=== PATIENT | female | born 1985 | race Native Hawaiian/Other Pacific Islander ===

== ENCOUNTER 2017-03-06 23:48 | Emergency (ER) | payer MEDICAID ==
[2017-03-06 23:49] VITALS: BMI 40.8
[2017-03-06 23:55] VITALS: RESP 18
[2017-03-07] MEDS ORDERED: Sodium Chloride 0.9% 1,000 ML IV STA (00:29)
[2017-03-07 00:53] LABS: BASO # 0.1 K/uL (0.0-0.2); BASO % 0.6 % (0.0-2.0); EOS % 0.1 % (0.0-4.0); LYMPH # 1.2 K/uL (1.0-4.3); LYMPH % 7.8 % (20.0-40.0); MEAN CORPUSCULAR HEMOGLOBIN 25.8 pg (27.0-31.0); MEAN CORPUSCULAR HGB CONC 32.2 g/dL (33.0-37.0); MEAN PLATELET VOLUME 7.8 fl (7.2-11.7); MONO # 1.2 K/uL (0.0-0.8); MONO % 7.3 % (0.0-10.0); NEUT # 13.6 K/uL (1.8-7.0); NEUT % 84.2 % (50.0-75.0); PLATELET COUNT 278 K/uL (130-400); RBC 4.92 Mil/uL (3.80-5.20); RED CELL DISTRIBUTION WIDTH 14.4 % (11.5-14.5); WHITE BLOOD COUNT 16.1 K/uL (4.8-10.8)
[2017-03-07 01:01] LABS: HEMOGLOBIN 12.7 g/dL (12.0-16.0); MEAN CELL VOLUME 80.1 fl (81.0-99.0)
[2017-03-07 01:03] LABS: BLOOD UREA NITROGEN 6 mg/dl (7-17); CALCIUM 9.1 mg/dL (8.4-10.2); GFR AFRICAN-AMERICAN > 60; GFR NON-AFRICAN AMERICAN > 60
--- NOTE | 2017-03-07 01:24 | ED PDOC ---
HPI: CCC, URI, Sore Throat Time Seen by Provider: 03/06/17 23:56 Chief Complaint (Nursing): Flu-like Symptoms Chief Complaint (Provider): Flu-like Symptoms History Per: Patient History/Exam Limitations: no limitations Onset/Duration Of Symptoms: Days (x2-3 days) Current Symptoms Are (Timing): Still Present Sick Contacts (Context): Family Member(s) (children) Additional Complaint(s): Jennifer Quinonez is a 31 year old female who presents to the emergency department with complaints of body aches associated with fever and chills ongoing for 2-3 days. Denies any throat pain, dsypnea, cough, nausea, vomiting, diarrhea, abdominal pain or urinary symptoms. Of note, patient states that her kids recently had a strep throat infection. PMD: Lang Briggs MD Past Medical History Reviewed: Historical Data, Nursing Documentation, Vital Signs Vital Signs: Last Vital Signs Temp 98.2 F 03/07/17 03:32 Pulse 88 03/07/17 03:32 Resp 18 03/07/17 03:32 BP 132/74 03/07/17 03:32 Pulse Ox 97 03/07/17 03:46 - Medical History PMH: HTN - Surgical History Surgical History: (x 4) - Family History Family History: States: Unknown Family Hx - Social History Ex-Smoker (has not smoked in the last 12 months): Yes Alcohol: None Drugs: Denies - Home Medications Home Medications: Ambulatory Orders Medication Instructions Recorded Labetalol [Trandate] 100 mg PO BID 06/17/16 Multivit/Folic Acid/I 1 tab PO DAILY 06/17/16 [] Ferrous Sulfate 325 mg PO QD7 #60 tablet 06/20/16 Ibuprofen [Motrin Tab] 600 mg PO Q6 PRN #30 tab 06/20/16 oxyCODONE/Acetaminophen [Percocet 1 tab PO Q6 PRN #20 tab 06/20/16 5/325 mg Tab] Oseltamivir Phosphate [Tamiflu] 75 mg PO BID #9 capsule 10/17/16 Ibuprofen [Motrin Tab] 600 mg PO Q6 #30 tab 03/07/17 - Allergies Allergies/Adverse Reactions: Allergies Allergy/AdvReac Type Severity Reaction Status Date / Time metronidazole [From Flagyl] Allergy ANAPHYLAXIS Verified 12/12/15 00:01 Penicillins Allergy ANAPHYLAXIS Verified 12/12/15 00:01 Review of Systems ROS Statement: Except As Marked, All Systems Reviewed And Found Negative Constitutional: Positive for: Fever, Chills, Other (body aches) ENT: Negative for: Throat Pain Respiratory: Negative for: Cough, Other (dsypnea) Gastrointestinal: Negative for: Nausea, Vomiting, Abdominal Pain, Diarrhea Genitourinary Female: Negative for: Dysuria, Hematuria Physical Exam - Reviewed Nursing Documentation Reviewed: Yes Vital Signs Reviewed: Yes - Physical Exam Appears: Positive for: Well, Non-toxic, No Acute Distress Head Exam: Positive for: ATRAUMATIC, NORMAL INSPECTION, NORMOCEPHALIC Skin: Positive for: Normal Color, Warm, Dry Eye Exam: Positive for: EOMI, Normal appearance, PERRL ENT: Positive for: Normal ENT Inspection Neck: Positive for: Normal, Painless ROM, Supple Cardiovascular/Chest: Positive for: Tachycardia Respiratory: Positive for: Normal Breath Sounds. Negative for: Crackles, Rales , Rhonchi, Stridor Gastrointestinal/Abdominal: Positive for: Normal Exam, Bowel Sounds, Soft. Negative for: Tenderness, Mass Back: Positive for: Normal Inspection. Negative for: L CVA Tenderness, R CVA Tenderness Extremity: Positive for: Normal ROM. Negative for: Pedal Edema Neurologic/Psych: Positive for: Alert, Oriented - Laboratory Results Result Diagrams: 03/07/17 00:40 03/07/17 00:40 - ECG O2 Sat by Pulse Oximetry: 97 (RA) Pulse Ox Interpretation: Normal Medical Decision Making Medical Decision Making: Initial Impression: Viral illness Initial Plan: * Lactic acid, plasma * Urine dipstick * Urine * Labs * Toradol 30mg IVP * NS 1,000 ml IV per 500 mls/hr * Throat culture * Reevaluate 330: Pt. feeling better, will d/c home. Return precautions given. Informed to consume potassium containing foods (i.e. bananas) and followup with Dr. Briggs in 1-2days. Scribe Attestation: Documented by Fay Boston, acting as a scribe for Kevin Sandoval MD. Provider Scribe Attestation: All medical record entries made by the Scribe were at my direction and personally dictated by me. I have reviewed the chart and agree that the record accurately reflects my personal performance of the history, physical exam, medical decision making, and the department course for this patient. I have also personally directed, reviewed, and agree with the discharge instructions and disposition. Disposition - Clinical Impression Clinical Impression: Viral illness - Disposition Referrals: Lang Briggs MD [Non-Staff] - Disposition: Routine/Home Disposition Time: 03:46 Condition: STABLE Prescriptions: Ibuprofen [Motrin Tab] 600 mg PO Q6 #30 tab Instructions: Fever in Adults (ED)
[2017-03-07 03:29] LABS: LYMPHOCYTE 6 % (20-50); MONOCYTE 9 % (0-10); NEUTROPHIL 85 % (42-75); PLATELET ESTIMATE NORMAL (NORMAL); TOTAL CELLS COUNTED 100
[2017-03-07 03:30] LABS: ANISOCYTOSIS SLIGHT
[2017-03-07 03:33] VITALS: BP 132/74; PULSE 88; TEMP 98.2
[2017-03-07 03:46] VITALS: O2SAT 97
== END 2017-03-07 03:52 | disposition home or self-care (01) ==
LOC: H.ER 23:48
DX: B34.9 Viral infection, unspecified (principal); I10 Essential (primary) hypertension; Z88.0 Allergy status to penicillin

== ENCOUNTER 2017-08-19 21:33 | Emergency (ER) | payer MEDICAID ==
[2017-08-19 21:33] VITALS: BMI 40.8
[2017-08-19 21:54] VITALS: RESP 16; TEMP 99.8
[2017-08-19] MEDS ORDERED: Sodium Chloride 0.9% 1,000 ML IV STA (22:24)
--- NOTE | 2017-08-19 22:57 | ED PDOC ---
HPI: Abdomen Time Seen by Provider: 08/19/17 22:02 Chief Complaint (Nursing): GI Problem Chief Complaint (Provider): epigastric pain Onset/Duration Of Symptoms: Days (3) Location Of Pain/Discomfort: Epigastric Quality Of Discomfort: Aching, "Pain" Associated Symptoms: Chills, Nausea, Vomiting (nonbilious nonbloody >10 x), Loss Of Appetite. denies: Fever, Back Pain, Chest Pain, Constipation, Urinary Symptoms Exacerbating Factors: None Alleviating Factors: None Past Medical History Reviewed: Historical Data, Nursing Documentation, Vital Signs Vital Signs: Last Vital Signs Temp 99.8 F H 08/19/17 21:51 Pulse 81 08/19/17 21:51 Resp 16 08/19/17 21:51 BP 180/128 H 08/19/17 21:51 Pulse Ox 100 08/19/17 23:39 - Medical History PMH: HTN Denies: Chronic Kidney Disease - Surgical History Surgical History: (x 4) - Family History Family History: States: Hypertension - Social History Current smoker - smoking cessation education provided: No Alcohol: None - Home Medications Home Medications: Ambulatory Orders Medication Instructions Recorded Labetalol [Trandate] 100 mg PO BID 06/17/16 Multivit/Folic Acid/I 1 tab PO DAILY 06/17/16 [] Ferrous Sulfate 325 mg PO QD7 #60 tablet 06/20/16 Ibuprofen [Motrin Tab] 600 mg PO Q6 PRN #30 tab 06/20/16 oxyCODONE/Acetaminophen [Percocet 1 tab PO Q6 PRN #20 tab 06/20/16 5/325 mg Tab] Oseltamivir Phosphate [Tamiflu] 75 mg PO BID #9 capsule 10/17/16 Ibuprofen [Motrin Tab] 600 mg PO Q6 #30 tab 03/07/17 Famotidine [Pepcid] 40 mg PO DAILY PRN #14 tab 08/20/17 Ondansetron ODT [Zofran ODT] 1 odt PO Q6 PRN #20 odt 08/20/17 - Allergies Allergies/Adverse Reactions: Allergies Allergy/AdvReac Type Severity Reaction Status Date / Time metronidazole [From Flagyl] Allergy ANAPHYLAXIS Verified 08/19/17 21:51 Penicillins Allergy ANAPHYLAXIS Verified 08/19/17 21:51 epidural Allergy RASH Uncoded 08/19/17 21:51 Review of Systems ROS Statement: Except As Marked, All Systems Reviewed And Found Negative (and as per HPI) Constitutional: Positive for: Weakness, Malaise Gastrointestinal: Positive for: Nausea, Vomiting, Abdominal Pain. Negative for : Diarrhea, Melena, Hematochezia, Hematemesis Physical Exam - Reviewed Nursing Documentation Reviewed: Yes Vital Signs Reviewed: Yes - Physical Exam Appears: Positive for: Uncomfortable, In Acute Distress Head Exam: Positive for: ATRAUMATIC, NORMOCEPHALIC Skin: Positive for: Warm, Dry Eye Exam: Positive for: EOMI, PERRL ENT: Positive for: Other (dry mucus membranes) Neck: Positive for: Painless ROM, Supple Cardiovascular/Chest: Positive for: Regular Rate, Rhythm, Chest Non Tender. Negative for: Murmur Respiratory: Positive for: Normal Breath Sounds. Negative for: Wheezing Gastrointestinal/Abdominal: Positive for: Bowel Sounds, Soft, Tenderness ( epigastric). Negative for: Mass, Distended, Guarding, Rebound Back: Positive for: Normal Inspection. Negative for: L CVA Tenderness, R CVA Tenderness Extremity: Positive for: Normal ROM. Negative for: Deformity Lymphatic: Negative for: Adenopathy Neurologic/Psych: Positive for: Alert. Negative for: Motor/Sensory Deficits - Laboratory Results Result Diagrams: 08/19/17 23:10 08/19/17 23:10 Interpretation Of Abn Labs: No clinically significant lab abnormalities. - ECG O2 Sat by Pulse Oximetry: 100 Pulse Ox Interpretation: Normal Disposition - Clinical Impression Clinical Impression: Abdominal pain, Hypertension Counseled Patient/Family Regarding: Studies Performed, Diagnosis, Need For Followup, Rx Given - Disposition Disposition: Routine/Home Disposition Time: 00:03 Condition: IMPROVED Additional Instructions: CALL YOUR DOCTOR TOMORROW FOR FOLLOW UP BY THE END OF WEEK BLAND DIET WITH PLENTY OF HYDRATING FLUIDS WHEN YOU ARE FEELING BETTER, ATTEMPT LIFESTYLE CHANGES TO DECREASE HYPERTENSION. YOU WILL NEED TO FOLLOW UP WITH YOUR PMD TO SEE IF YOU NEED TO START MEDICATIONS FOR HYPERTENSION Prescriptions: Famotidine [Pepcid] 40 mg PO DAILY PRN #14 tab PRN Reason: reflux Ondansetron ODT [Zofran ODT] 1 odt PO Q6 PRN #20 odt PRN Reason: Nausea/Vomiting Instructions: Acute Nausea and Vomiting (ED), Hypertension (ED), Low Sodium Diet (ED) Forms: [facility] ED School/Work Excuse
[2017-08-19 23:12] LABS: BASO # 0.1 K/uL (0.0-0.2); BASO % 0.9 % (0.0-2.0); EOS # 0.2 K/uL (0.0-0.7); HEMATOCRIT 39.4 % (34.0-47.0); LYMPH # 3.3 K/uL (1.0-4.3); LYMPH % 33.2 % (20.0-40.0); MEAN CELL VOLUME 78.9 fl (81.0-99.0); MEAN CORPUSCULAR HEMOGLOBIN 25.5 pg (27.0-31.0); MEAN CORPUSCULAR HGB CONC 32.3 g/dL (33.0-37.0); MEAN PLATELET VOLUME 7.4 fl (7.2-11.7); MONO # 0.6 K/uL (0.0-0.8); MONO % 5.8 % (0.0-10.0); NEUT # 5.7 K/uL (1.8-7.0); NEUT % 58.1 % (50.0-75.0); RED CELL DISTRIBUTION WIDTH 15.4 % (11.5-14.5); WHITE BLOOD COUNT 9.9 K/uL (4.8-10.8)
[2017-08-19 23:21] LABS: ALB/GLOB RATIO 1.2 (1.0-2.1); ALKALINE PHOSPHATASE 53 U/L (38-126); ALT/SGPT 40 U/L (9-52); AST/SGOT 31 U/L (14-36); BILIRUBIN,TOTAL 0.4 mg/dl (0.2-1.3); BLOOD UREA NITROGEN 9 mg/dl (7-17); CALCIUM 8.8 mg/dL (8.4-10.2); CARBON DIOXIDE 28 mmol/L (22-30); CHLORIDE 104 mmol/L (98-107); GFR AFRICAN-AMERICAN > 60; GLUCOSE,RANDOM 79 mg/dL (65-105); LIPASE 83 U/L (23-300); MAGNESIUM 1.8 MG/DL (1.6-2.3); PHOSPHOROUS 3.9 mg/dl (2.5-4.5); POTASSIUM 3.6 MMOL/L (3.6-5.0); SODIUM 141 mmol/l (132-148); TOTAL PROTEIN 8.1 G/DL (6.3-8.2)
--- NOTE | 2017-08-19 23:51 | US ---
EXAM: US Abdomen Limited, Right Upper Quadrant EXAM DATE/TIME: 08/19/2017 10:28 PM CLINICAL HISTORY: 32 years old, female; Pain; Abdominal pain; Epigastric; Additional info: Abd pain vomitin TECHNIQUE: Real-time ultrasound of the right upper quadrant with image documentation. COMPARISON: There are no prior studies for comparison. FINDINGS: Liver: There is a 2 x 1.7 x 1 cm hyperechoic mass in the right lobe of the liver. There is hepatopedal flow in the main portal vein. Gallbladder: Gallbladder is distended with no stones, sludge or wall thickening. Gallbladder wall measures 2.4 mm in width. Common bile duct: Common bile duct measures 3.7 mm in diameter. Pancreas: Pancreas is partially obscured by bowel gas. Visualized portion is unremarkable. Right kidney: Right kidney is unremarkable. Aorta: Visualized portions of the aorta and inferior vena cava are unremarkable. IMPRESSION: Probable small hemangioma in the right lobe of the liver; no gallstones or ductal dilatation Patient was not tender over the gallbladder
[2017-08-20 00:52] VITALS: BP 150/75; PULSE 76; O2SAT 99
== END 2017-08-20 00:54 | disposition home or self-care (01) ==
LOC: H.ER 21:33
DX: I10 Essential (primary) hypertension (principal); Z88.0 Allergy status to penicillin; R10.13 Epigastric pain
CPT/HCPCS: 76705; 80053; 83690; 83735; 84100; 85025; 96361; 96374; 96375; 99283; J2405; J7040

== ENCOUNTER 2017-10-23 22:50 | Emergency (ER) | payer MEDICAID ==
[2017-10-23 22:50] VITALS: BMI 40.8
[2017-10-23 23:07] VITALS: BP 157/103; PULSE 81; TEMP 98.1; O2SAT 100
--- NOTE | 2017-10-24 01:15 | ED PDOC ---
HPI: SOB/CHF/COPD Time Seen by Provider: 10/23/17 23:52 Chief Complaint (Nursing): Shortness Of Breath Chief Complaint (Provider): Shortness Of Breath History Per: Patient History/Exam Limitations: no limitations Onset/Duration Of Symptoms: Hrs (x4 hours) Current Symptoms Are (Timing): Still Present Additional Complaint(s): 32 y/o [place] female with past medical history of hypertension presents to the ED complaining of shortness of breath x 3 hours. At work today patient started feeling chest tightness and dizziness. Patient works at [employer] and went to their onsite clinic where she got her blood pressure checked and it was normal. But the symptoms continued which prompted her to leave work and come to ED. Denies nausea, vomiting, fever, recent travel or any further medical complaints. PMD: Dewey Brady MD Past Medical History Reviewed: Historical Data, Nursing Documentation, Vital Signs Vital Signs: Last Vital Signs Temp 98.1 F 10/23/17 23:03 Pulse 81 10/23/17 23:03 Resp 16 10/24/17 01:20 BP 157/103 H 10/23/17 23:03 Pulse Ox 100 10/24/17 01:18 - Medical History PMH: HTN Denies: Chronic Kidney Disease - Surgical History Surgical History: (x 4) - Family History Family History: States: Hypertension - Social History Current smoker - smoking cessation education provided: No Alcohol: None Drugs: Denies - Home Medications Home Medications: Ambulatory Orders Medication Instructions Recorded Labetalol [Trandate] 100 mg PO BID 06/17/16 Multivit/Folic Acid/I 1 tab PO DAILY 06/17/16 [] Ferrous Sulfate 325 mg PO QD7 #60 tablet 06/20/16 Ibuprofen [Motrin Tab] 600 mg PO Q6 PRN #30 tab 06/20/16 oxyCODONE/Acetaminophen [Percocet 1 tab PO Q6 PRN #20 tab 06/20/16 5/325 mg Tab] Oseltamivir Phosphate [Tamiflu] 75 mg PO BID #9 capsule 10/17/16 Ibuprofen [Motrin Tab] 600 mg PO Q6 #30 tab 03/07/17 Famotidine [Pepcid] 40 mg PO DAILY PRN #14 tab 08/20/17 Ondansetron ODT [Zofran ODT] 1 odt PO Q6 PRN #20 odt 08/20/17 - Allergies Allergies/Adverse Reactions: Allergies Allergy/AdvReac Type Severity Reaction Status Date / Time metronidazole [From Flagyl] Allergy ANAPHYLAXIS Verified 10/23/17 23:07 Penicillins Allergy ANAPHYLAXIS Verified 10/23/17 23:07 epidural Allergy RASH Uncoded 10/23/17 23:07 Review of Systems ROS Statement: Except As Marked, All Systems Reviewed And Found Negative (As per HPI, otherwise negative) Cardiovascular: Positive for: Chest Pain Respiratory: Positive for: Shortness of Breath Physical Exam - Reviewed Nursing Documentation Reviewed: Yes Vital Signs Reviewed: Yes - Physical Exam Appears: Positive for: Well, Non-toxic, No Acute Distress Head Exam: Positive for: ATRAUMATIC, NORMAL INSPECTION, NORMOCEPHALIC Skin: Positive for: Normal Color, Warm, Dry Eye Exam: Positive for: EOMI, Normal appearance, PERRL ENT: Positive for: Normal ENT Inspection Neck: Positive for: Normal, Painless ROM, Supple Cardiovascular/Chest: Positive for: Regular Rate, Rhythm. Negative for: Murmur Respiratory: Positive for: Normal Breath Sounds. Negative for: Accessory Muscle Use, Respiratory Distress Gastrointestinal/Abdominal: Positive for: Normal Exam, Bowel Sounds, Soft. Negative for: Tenderness Back: Positive for: Normal Inspection Extremity: Positive for: Normal ROM. Negative for: Deformity Neurologic/Psych: Positive for: Alert, Oriented (x3) - Laboratory Results Result Diagrams: 10/24/17 01:00 10/24/17 01:00 - ECG O2 Sat by Pulse Oximetry: 100 (RA) Pulse Ox Interpretation: Normal Medical Decision Making Medical Decision Making: Time: 00:02 Initial Impression: 32 y/o [place] female with acute dyspnea Plan: BMP Urine CBC w/ differential D dimer Chest x-ray Heplock insertion Time: 02:41 -- Chest x-ray shows no active disease -- Labs show no clinically significant abnormalities Upon provider reevaluation patient is feeling better, is medically stable, and requires no further treatment in the ED at this time. Patient will be discharged home. Counseling was provided and all questions were answered regarding diagnosis. There is agreement to discharge plan. Return if symptoms persist or worsen. Clinical Impression: Dyspnea Scribe Attestation: Documented by Homer Phillips acting as a scribe for Brendan Clark MD. Scribe Attestation: All medical record entries made by the Scribe were at my direction and personally dictated by me. I have reviewed the chart and agree that the record accurately reflects my personal performance of the history, physical exam, medical decision making, and the department course for this patient. I have also personally directed, reviewed, and agree with the discharge instructions and disposition. Disposition - Clinical Impression Clinical Impression: Dyspnea - Disposition Disposition: Routine/Home Disposition Time: 02:41 Condition: STABLE Instructions: Shortness of Breath (Dyspnea) Forms: [employer] (Wallisian)
[2017-10-24 01:23] VITALS: RESP 16
[2017-10-24 01:29] LABS: BASO # 0.1 K/uL (0.0-0.2); EOS # 0.3 K/uL (0.0-0.7); EOS % 2.2 % (0.0-4.0); HEMOGLOBIN 11.8 g/dL (12.0-16.0); LYMPH # 4.1 K/uL (1.0-4.3); LYMPH % 32.5 % (20.0-40.0); MEAN CELL VOLUME 78.8 fl (81.0-99.0); MEAN CORPUSCULAR HEMOGLOBIN 25.5 pg (27.0-31.0); MEAN CORPUSCULAR HGB CONC 32.4 g/dL (33.0-37.0); MEAN PLATELET VOLUME 7.4 fl (7.2-11.7); MONO # 0.8 K/uL (0.0-0.8); MONO % 6.1 % (0.0-10.0); NEUT # 7.3 K/uL (1.8-7.0); NEUT % 58.2 % (50.0-75.0); NRBC % 0.1 % (0.0-0.0); RBC 4.61 Mil/uL (3.80-5.20); RED CELL DISTRIBUTION WIDTH 15.7 % (11.5-14.5); WHITE BLOOD COUNT 12.6 K/uL (4.8-10.8)
[2017-10-24 01:37] LABS: BLOOD UREA NITROGEN 14 mg/dl (7-17); CALCIUM 8.3 mg/dL (8.4-10.2); GFR AFRICAN-AMERICAN > 60; GFR NON-AFRICAN AMERICAN > 60
--- NOTE | 2017-10-24 08:32 | RAD ---
HISTORY: SOB COMPARISON: No prior. FINDINGS: LUNGS: No active pulmonary disease. PLEURA: No significant pleural effusion identified, no pneumothorax apparent. CARDIOVASCULAR: Normal. OSSEOUS STRUCTURES: No significant abnormalities. VISUALIZED UPPER ABDOMEN: Normal. OTHER FINDINGS: None. IMPRESSION: No active disease.
== END 2017-10-24 03:04 | disposition home or self-care (01) ==
LOC: H.ER 22:50
DX: R06.00 Dyspnea, unspecified (principal)

== ENCOUNTER 2017-11-04 16:41 | Emergency (ER) | payer OTHER, MEDICAID ==
[2017-11-04 16:42] VITALS: BMI 40.8
[2017-11-04 16:50] VITALS: BP 163/93; PULSE 74; RESP 18; TEMP 99.4; O2SAT 98
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
== END 2017-11-04 18:42 | disposition home or self-care (01) ==
LOC: H.ER 16:41
DX: S39.012A Strain of muscle, fascia and tendon of lower back, initial encounter (principal); S16.1XXA Strain of muscle, fascia and tendon at neck level, initial encounter; V43.52XA Car driver injured in collision with other type car in traffic accident, initial encounter; Y92.410 Unspecified street and highway as the place of occurrence of the external cause; I10 Essential (primary) hypertension; Z88.0 Allergy status to penicillin

== ENCOUNTER 2018-02-01 14:53 | Emergency (ER) | payer MEDICAID, OTHER ==
[2018-02-01 14:53] VITALS: BMI 40.8
[2018-02-01 15:17] VITALS: PULSE 66; RESP 18; TEMP 98.3; O2SAT 99
[2018-02-01 15:31] VITALS: BP 146/82
[2018-02-01] MEDS ORDERED: Sodium Chloride 0.9% 1,000 ML IV SCH (16:15)
--- NOTE | 2018-02-01 16:35 | ED PDOC ---
HPI: Headache Time Seen by Provider: 02/01/18 16:00 Chief Complaint (Nursing): Headache Chief Complaint (Provider): Headache History Per: Patient History/Exam Limitations: no limitations Onset/Duration Of Symptoms: Days (2x) Current Symptoms Are (Timing): Intermittent Episodes Pain Scale Rating Of: 8 Quality: Tightness Preceeding Symptoms: None Associated Symptoms: Nausea. denies: Photophobia, Blurred Vision, Extremity Weakness Additional Complaint(s): 32 year old female arrived to ED complaining of 2 days of intermittent frontal non-radiating headache. Reports the headache is at its worse today and rates it 04/16. Patient took Motrin and felt relief yesterday but the pain resumed today so patient came to the ED to be evaluated. She also became alarmed with bilateral palm-region numbness and tingling extending proximally to forearm today. Patient noted an episode of hand tenderness/pain when grabbing something as well today. She notes that 4 years ago she had a headache that required her doctor to evaluate her and had diagnosed her with migraines but she had no further headache complaints for a while. + mild nausea today as well as mildly light-sensitive; pt denied slurr speech/facial changes, no vision changes, no gait changes; no rashes pt denied fever/chills/sweats pt denied sob/chest pain/palpitations pt denied abdominal pain/vomiting pt denied urinary problems/ bowel changes/incontinence pt denied fall/trauma/sick contact, no travel PMD: [place] Guerrero [place] [place] hand dominate Family hx: unremarkable; no one with early IN/stroke Past Medical History Reviewed: Historical Data, Nursing Documentation, Vital Signs Vital Signs: Last Vital Signs Temp 98.3 F 02/01/18 15:14 Pulse 66 02/01/18 15:14 Resp 18 02/01/18 15:14 BP 146/82 02/01/18 15:31 Pulse Ox 99 02/01/18 15:14 - Medical History PMH: HTN Denies: Chronic Kidney Disease - Surgical History Surgical History: (x 4) - Family History Family History: States: Hypertension - Living Arrangements Living Arrangements: With Family - Social History Current smoker - smoking cessation education provided: No Ex-Smoker (has not smoked in the last 12 months): No Alcohol: None Drugs: Denies - Home Medications Home Medications: Ambulatory Orders Medication Instructions Recorded Labetalol [Trandate] 100 mg PO BID 06/17/16 Multivit/Folic Acid/I 1 tab PO DAILY 06/17/16 [] Ferrous Sulfate 325 mg PO QD7 #60 tablet 06/20/16 Ibuprofen [Motrin Tab] 600 mg PO Q6 PRN #30 tab 06/20/16 oxyCODONE/Acetaminophen [Percocet 1 tab PO Q6 PRN #20 tab 06/20/16 5/325 mg Tab] Oseltamivir Phosphate [Tamiflu] 75 mg PO BID #9 capsule 10/17/16 Ibuprofen [Motrin Tab] 600 mg PO Q6 #30 tab 03/07/17 Famotidine [Pepcid] 40 mg PO DAILY PRN #14 tab 08/20/17 Ondansetron ODT [Zofran ODT] 1 odt PO Q6 PRN #20 odt 08/20/17 Naproxen 375 mg PO Q8 PRN #21 tablet 11/04/17 diaZEpam [Valium] 5 mg PO Q6 PRN #3 tab 11/04/17 Ibuprofen [Motrin] 600 mg PO TID PRN #30 tab 02/01/18 Metoclopramide [Reglan] 10 mg PO TID PRN #20 tab 02/01/18 - Allergies Allergies/Adverse Reactions: Allergies Allergy/AdvReac Type Severity Reaction Status Date / Time metronidazole [From Flagyl] Allergy ANAPHYLAXIS Verified 02/01/18 15:14 Penicillins Allergy ANAPHYLAXIS Verified 02/01/18 15:14 epidural Allergy RASH Uncoded 11/04/17 16:46 Review of Systems ROS Statement: Except As Marked, All Systems Reviewed And Found Negative Constitutional: Negative for: Fever, Chills, Sweats Eyes: Positive for: Other (light sensitive) ENT: Negative for: Ear Pain, Ear Discharge, Nose Congestion Cardiovascular: Negative for: Chest Pain, Palpitations Respiratory: Negative for: Shortness of Breath Gastrointestinal: Positive for: Nausea. Negative for: Vomiting, Abdominal Pain , Constipation Genitourinary Female: Negative for: Dysuria Musculoskeletal: Negative for: Neck Pain, Back Pain Skin: Negative for: Rash Neurological: Positive for: Headache. Negative for: Weakness, Altered Mental Status, Dizziness Psych: Negative for: Anxiety, Depression Physical Exam - Reviewed Nursing Documentation Reviewed: Yes Vital Signs Reviewed: Yes (elevated BP) - Physical Exam Comments: General: alert/awake, GCS = 15, oriented x 3, resting in bed, uncomfortable, cooperative, interactive; NAD Head: NC/AT EYE: PERRLA, EOMI, sclera anicteric, no nystagmus, no photophobia; fundoscopic exam: WNL, no actue papilledema noted b/l; visual field intact b/l Facial: WNL Oral: uvula/tongue are midline, no exudate/lesions, no drooling/stridor, no dysphonia; intact dentitions; moist oral mucosa NECK: intact ROM, no midline tenderness, no nuchal rigidity, no meningeal signs ; no step off Chest: CTA b/l, no w/r/r; no tachypenia, no accessory muscle use noted Cardiac: +S1, +S2, no m/r/r, no tachycardia Abdominal: +BS, soft/nd/nt, well nourished/obese patient; no masses/rebound/ guarding/rigidity; no lua's sign, no mcburney's point tenderness Extremities: intact ROM, strength 5/5 grossly intact in all limbs, neurovasc intact b/l; + ambulatory; reflex +2/2; no pitting edema noted b/l, no isaac's sign BACK: no step off, no midline tenderness, NO crepitus, no gross deformities noted; Intact ROM SKIN: cap refill < 1 sec, no ulcerations, no petechiae, no rashes NEURO: CNII-XII WNL, no facial asymmetries, no slurr speech, oriented x 3 NIH stroke scale ~ 0 Psych: normal insight, normal affect; follows command with ease - Laboratory Results Result Diagrams: 02/01/18 16:41 02/01/18 16:41 - ECG O2 Sat by Pulse Oximetry: 99 (RA) Pulse Ox Interpretation: Normal - Radiology X-Ray: Viewed By Me, Read By Radiologist - Progress ED Course And Treament: Time: 17:38 PROCEDURE: CT HEAD WITHOUT CONTRAST. HISTORY: headache, arm numbness/tingling COMPARISON: None available. TECHNIQUE: Axial computed tomography images were obtained through the head/brain without intravenous contrast. Radiation dose: Total exam DLP = 815.73 mGy-cm. This CT exam was performed using one or more of the following dose reduction techniques: Automated exposure control, adjustment of the mA and/or kV according to patient size, and/or use of iterative reconstruction technique. FINDINGS: HEMORRHAGE: No intracranial hemorrhage. BRAIN: Knowles-white matter differentiation is preserved. There is no mass, mass effect or abnormal extra-axial fluid collection. There is no territorial infarction. VENTRICLES: The ventricles are normal in size, shape and configuration. CALVARIUM: The skull base and calvarium are normal. PARANASAL SINUSES: Predominantly clear. MASTOID AIR CELLS: Predominantly clear. OTHER FINDINGS: None. IMPRESSION: No acute intracranial abnormality. If there is a persistent focal neurologic deficit and an ongoing clinical concern for acute infarction, an MRI of the brain without intravenous contrast would be a more sensitive modality for evaluation of hyperacute/acute ischemic infarction. ------- 5:45pm - pt is doing well, comfortable pt is awaiting her diagnostic results 6:00pm - I spoke to Dr Arriaga, communication electronic technician neurologist, made aware of pt's medical complaints/mgt/txt/dx, states pt unlikely with central process cause of pt's headache, recommend outpt f/u, will continue to monitor patient as outpt 6:20pm - pt is comfortable pt states NO headache pt is not in any distress NIH stroke scale ~ 0 vital signs are stable pt is made aware of her medical results pt is encouraged fluids pt will f/u as directed pt will be discharged home Re-evaluation Time: 18:20 Condition: Improved Medical Decision Making Medical Decision Making: Time: 16:07 Impression: I have consider all the differential diagnosis regarding pt's chief medical complaints/clinical findings, including but are not limited to: A/P: --Head w/o Contrast --CMP --Magnesium --Phosphorous --ED Urine --CBC w/ Differential --Erythrocyte Sedimentation Rate --Imitrex Inj 6mg --Normal Saline 1000 mls/hr --Reglan 10mg --Toradol 30mg --Urinalysis --observe/reevaluation Scribe Attestation: Documented by Cierra Carroll, acting as a scribe for Deshawn Sorenson MD Provider Scribe Attestation: All medical record entries made by the Scribe were at my direction and personally dictated by me. I have reviewed the chart and agree that the record accurately reflects my personal performance of the history, physical exam, medical decision making, and the department course for this patient. I have also personally directed, reviewed, and agree with the discharge instructions and disposition. Disposition - Clinical Impression Clinical Impression: Headache, Bilateral hand numbness - Patient ED Disposition Is Patient to be Admitted: No Discussed With : Karina Arriaga Doctor Will See Patient In The: Office Counseled Patient/Family Regarding: Studies Performed, Diagnosis, Need For Followup, Rx Given - Disposition Referrals: Karina Arriaga MD [Medical Doctor] - Disposition: Routine/Home Disposition Time: 18:44 Condition: STABLE Additional Instructions: Make sure to see your doctor in 1-2 days DRINK PLENTY OF FLUIDS take your medications as prescribed RETURN TO ED IF worse pain, cant breath, persistent vomiting, high fever >101- 102 for hours, altered behavior, slurr speech, facial changes, focal weakness ( arm/leg or both), unable to urinate, heavy/persistent bleeding, passing out, chest pain, or other medical emergencies Prescriptions: Ibuprofen [Motrin] 600 mg PO TID PRN #30 tab PRN Reason: Headache Metoclopramide [Reglan] 10 mg PO TID PRN #20 tab PRN Reason: Nausea/Vomiting Instructions: Migraine Headache (DC) Forms: Secured Mail (Maltese), [facility] ED School/Work Excuse Print Language: HONG K[place]ER
[2018-02-01 16:48] LABS: BASO % 0.3 % (0.0-2.0); EOS # 0.2 K/uL (0.0-0.7); EOS % 2.3 % (0.0-4.0); LYMPH # 1.7 K/uL (1.0-4.3); LYMPH % 19.8 % (20.0-40.0); MEAN CELL VOLUME 80.2 fl (81.0-99.0); MEAN CORPUSCULAR HEMOGLOBIN 26.1 pg (27.0-31.0); MEAN CORPUSCULAR HGB CONC 32.5 g/dL (33.0-37.0); MEAN PLATELET VOLUME 7.9 fl (7.2-11.7); MONO # 0.3 K/uL (0.0-0.8); MONO % 3.6 % (0.0-10.0); NEUT # 6.4 K/uL (1.8-7.0); RBC 5.36 Mil/uL (3.80-5.20); RED CELL DISTRIBUTION WIDTH 16.1 % (11.5-14.5); WHITE BLOOD COUNT 8.7 K/uL (4.8-10.8)
[2018-02-01 16:50] LABS: SQUAMOUS EPITHIAL 1 /hpf (0-5); URINE BILIRUBIN NEGATIVE (NEGATIVE); URINE BLOOD NEGATIVE (NEGATIVE); URINE CLARITY CLEAR (Clear); URINE COLOR YELLOW (YELLOW); URINE GLUCOSE (UA) NEG (Normal); URINE LEUKOCYTE ESTERASE NEG Leu/uL (Negative); URINE PROTEIN NEGATIVE (NEGATIVE); URINE UROBILINOGEN 0.2-1.0 mg/dL (0.2-1.0)
[2018-02-01 16:54] LABS: ALB/GLOB RATIO 1.1 (1.0-2.1); ALBUMIN 4.2 g/dL (3.5-5.0); ALT/SGPT 33 U/L (9-52); AST/SGOT 28 U/L (14-36); BLOOD UREA NITROGEN 8 mg/dl (7-17); CALCIUM 9.1 mg/dL (8.4-10.2); GFR AFRICAN-AMERICAN > 60; GFR NON-AFRICAN AMERICAN > 60
--- NOTE | 2018-02-01 17:39 | CT ---
PROCEDURE: CT HEAD WITHOUT CONTRAST. HISTORY: headache, arm numbness/tingling COMPARISON: None available. TECHNIQUE: Axial computed tomography images were obtained through the head/brain without intravenous contrast. Radiation dose: Total exam DLP = 815.73 mGy-cm. This CT exam was performed using one or more of the following dose reduction techniques: Automated exposure control, adjustment of the mA and/or kV according to patient size, and/or use of iterative reconstruction technique. FINDINGS: HEMORRHAGE: No intracranial hemorrhage. BRAIN: Knowles-white matter differentiation is preserved. There is no mass, mass effect or abnormal extra-axial fluid collection. There is no territorial infarction. VENTRICLES: The ventricles are normal in size, shape and configuration. CALVARIUM: The skull base and calvarium are normal. PARANASAL SINUSES: Predominantly clear. MASTOID AIR CELLS: Predominantly clear. OTHER FINDINGS: None. IMPRESSION: No acute intracranial abnormality. If there is a persistent focal neurologic deficit and an ongoing clinical concern for acute infarction, an MRI of the brain without intravenous contrast would be a more sensitive modality for evaluation of hyperacute/acute ischemic infarction.
== END 2018-02-01 19:09 | disposition home or self-care (01) ==
LOC: H.ER 14:53
DX: R51 Headache (principal); R20.2 Paresthesia of skin
CPT/HCPCS: 70450; 80053; 81003; 81025; 83735; 84100; 85025; 85651; 96372; 96374; 96375; 99285; J1885; J2765; J3030; J7030